=== PATIENT | female | born 1960 | race Caucasian/White ===

== ENCOUNTER → 2020-12-30 | Outpatient (CLI) | payer BC | LOC: CV 10:16 | PROVIDERS: ATTEND Family Medicine | DX: I10 Essential (primary) hypertension (principal); R07.89 Other chest pain ==

== ENCOUNTER 2021-02-26 12:20 | Observation (INO) | payer BC ==
[~2021-02-26] VITALS: Ht 162.6 cm; Wt 74.4 kg
[2021-02-26] VITALS (24 sets, daily range): BP systolic 86–139; BP diastolic 53–79
[2021-02-26] MEDS ORDERED: LIPITOR40 MG PO (14:04)
[2021-02-26] MEDS ORDERED: OXYCONTIN10 M1 PO (14:05)
[2021-02-26] MEDS ORDERED: LAMICTAL100 MG PO (14:05)
[2021-02-26] MEDS ORDERED: JARDIANCE25 MG PO (14:05)
[2021-02-26] MEDS ORDERED: OZEMPIC1 MG/0.71 SUBQ (14:06)
[2021-02-26 14:13] LABS: HEMOGLOBIN 16.3 gm/dL (12.0-15.0); MCH 31.4 pg (26.0-34.0); MCV 92.4 fL (80.0-100.0); RBC 5.19 mil/uL (4.20-5.00); RDW 13.5 % (10.5-14.5); WBC 9.7 thou/uL (4.0-11.0)
[2021-02-26 14:25] LABS: CALCIUM 10.5 mg/dL (8.5-10.1); CREATININE 0.9 mg/dL (0.6-1.0)
[2021-02-26 14:26] LABS: POTASSIUM 4.6 mmol/L (3.5-5.1)
--- NOTE | 2021-02-26 16:30 | NUR ---
REPORT RECEIVED FROM PREVIOUS RN. ADMITTED FOR STENT TO CIRC WITH R GROIN GUAZE/OPSITE DRESSING DRY/INTACT, PEDAL PULSES 2+. DENIES DISCOMFORT, SPOUSE PRESENT.
--- NOTE | 2021-02-26 17:21 | CATHLAB ---
[facility] [place] [address] INVASIVE PROCEDURE REPORT Name: BARBARA LACEY Room #: 219-P ADM Jeremias Robert#: [id number] Admission: 02/26/21 Attend Phys: Kirill Escamilla MD, Discharge: Date of : 62 Report #: [id number] THIS REPORT FOR: cc: Braden Jones MD, Bradley MD Mancuso, Gerald M. MD [facility] ~ APPROVED REPORT Study performed: 02/26/2021 14:19:30 Patient Details Patient Status: Out-Patient Room #: The patient is a 60 year-old female Event Personnel Kirill Escamilla Health Insurance Agent, Gena Iverson RN RN, Rosa Maria Martinez RTR, Negrito Dorado Ja'net RTR Monitor Procedures Performed Left Heart Cath w/or w/o Coronaries 2611593 [facility] Place w/wo Plasty Single CIRC 613966 Aortogram Abdominal Peripheral Angio 278595 Art Access - R femoral artery* 31852 Initial Mod Sed Same Phys/QHP Gr5y 228029 76292 Mod Sed Same Phys/QHP Ea 827829 Indication Chest pain Procedure Narrative The Right Groin^ was infiltrated with 1% Lidocaine subcutaneous anesthesia. A PINNACLE 6FR Sheath #[id number] sheath was inserted into the RFA^. Coronary angiography was performed using coronary diagnostic catheters. The right coronary system was accessed and visualized with a JR4 catheter. The left coronary system was accessed and visualized with a JL4 catheter. The left ventricle was accessed and visualized with a PIGTAIL catheter. An aortogram of the abdominal aorta was performed. Closure device was deployed with a Fr MYNX CONTROL 6F/7F L#[id number]. The patient tolerated the procedure well and there were no complications associated with the procedure. There was no hematoma. Intraoperative Conscious Sedation Sedation start time: 14:54 Case end Time: 16:14 [facility] [place] [address] INVASIVE PROCEDURE REPORT Name: BARBARA LACEY Room #: 219-P [facility] .R.#: [id number] Admission: 02/26/21 Attend Phys: Kirill Escamilla, Discharge: Date of : 62 Report #: [id number] Fentanyl 150 mcg Versed 1 mg Fluoro Time: 4.32 minutes Dose: DAP 4382.10 cGycm2 575 mGy Contrast Type and Amount: Visipaque 145 ml Hemodynamics The aortic pressure is 127/58 mmHg with a mean of 93 mmHg. The left ventricular pressure is 148/4 mmHg with a mean of mmHg. The left ventricular end diastolic pressure is 20 mmHg. PCI Technique Lesion Percutaneous coronary intervention was performed on the proximal circumflex artery segment. A LAUNCHER 6FR EBU 3.5 #[id number] Guide Catheter was used to engage the CIRC ostium. A Luge Wire .014 x 182CM #[id number] Interventional Guidewire was used to cross the lesion. BALLOON DILATION A Balloon catheter Sprinter OTW 2.5 x 15 #[id number] was inserted and inflated up to 8.00atm for 24seconds. Additional Inflation: 14.00atm for 22seconds. STENT DEPLOYMENT A stent RESOLUTE ESTRADA OTW 3.0 X 15 #[id number] was inserted and inflated up to 14.00atm for 22seconds. Additional Inflation: 16.00atm for 22seconds. Conclusion #1 Successful PTCA stent of a proximal mid large dominant circumflex artery with a long 95% lesion to 0% with placement of a 3.0 x 15 resolute Mccleary postdilated to 3.2 mm ZULEYMA grade III flow. #2 distal left main of 30 to 40% giving rise to LAD and circumflex will follow. #3 the ostial LAD off the left main is a 60% eccentric lesion with mild diffuse disease in this LAD which extends to the apex. #4 small nondominant right coronary artery mildly diseased #5 normal left ventricular size and systolic function EF 55% #6 abdominal aortogram revealed mild aortic ectasia but no definite aneurysm brisk flow was noted mild plaquing. Recommendations and plan: Continue aggressive risk factor modification. Dual antiplatelet therapy has been initiated. Patient [facility] [address] [place] [address] INVASIVE PROCEDURE REPORT Name: BARBARA LACEY Room #: 219-P [facility] IN Jakob#: [id number] Admission: 02/26/21 Attend Phys: Kirill Escamilla, Discharge: Date of : 62 Report #: [id number] to transfer to [facility] to follow post coronary stent protocol. She is hemodynamically stable pain-free. Resolution of EKG changes. <ELECTRONICALLY SIGNED> By: Kirill Escamilla MD, FACC 02/26/211720 20 20 Kirill Escamilla MD, FACC /INF
[2021-02-26 20:46] LABS: ABSOLUTE NEUTROPHILS 8.4 thou/uL (1.4-8.2); BASOPHILS 0.5 % (0.0-2.0); LYMPHOCYTES 10.8 % (24.0-44.0); MCH 30.9 pg (26.0-34.0); MCHC 33.6 g/dL (28.0-37.0); MCV 91.9 fL (80.0-100.0); MONOCYTES 1.3 % (1.0-8.0); PLATELET COUNT 164 thou/uL (150-400); POLYS 87.4 % (36.0-66.0); RBC 4.58 mil/uL (4.20-5.00); RDW 13.3 % (10.5-14.5); WBC 9.7 thou/uL (4.0-11.0)
[2021-02-26 20:52] LABS: CALCIUM 9.8 mg/dL (8.5-10.1); POTASSIUM 4.5 mmol/L (3.5-5.1)
[2021-02-26 21:04] LABS: HEMOGLOBIN 14.1 gm/dL (12.0-15.0)
--- NOTE | 2021-02-26 22:58 | NUR ---
AT APPROXIMATELY 1999 NURSE TOOK PATIENT OFF OF BEDREST AND ASSISTED PATIENT TO RESTROOM. THIS WAS DONE ONLY AFTER NURSE ASSESSED PATIENT AND SPOKE TO PROVIDER ABOUT CONCERN FOR POSSIBLE HEMATOMA. WHEN BRINGING PATIENT BACK TO BED FROM RESTROOM PATIENT STARTED COMPLAINING OF "NOT FEELING RIGHT" AND NAUSEA. NURSE MOMENTARILY LEFT ROOM TO GRAB RECEPTACLE FOR PATIENT TO VOMIT IN WHEN NURSE HEARD TELE ALARM AND SAW PATIENTS HEART RATE FALL INTO THE 40'S AND 30'S. RAPID RESPONSE INITIATED WITH NURSE ASSESSING CONSIDERABLE GROWTH OF SWELLING IN PATIENTS RIGHT GROIN SITE. ORDERS RECEIVED. NURSE TO TAKE SERIAL BLOOD PRESSURES THROUGHOUT SHIFT WITH PATIENT INSTRUCTED TO STAY IN BEDREST UNTIL REMOVED FROM PROVIDER.
[2021-02-27] VITALS (12 sets, daily range): BP systolic 97–120; BP diastolic 39–59
[2021-02-27 04:56] LABS: CALCIUM 9.3 mg/dL (8.5-10.1); CREATININE 0.8 mg/dL (0.6-1.0); POTASSIUM 4.4 mmol/L (3.5-5.1); TOTAL BILIRUBIN 0.4 mg/dL (0.2-1.0)
[2021-02-27 05:02] LABS: HEMATOCRIT 39.7 % (37.0-47.0); HEMOGLOBIN 13.3 gm/dL (12.0-15.0); MCH 31.3 pg (26.0-34.0); MCHC 33.4 g/dL (28.0-37.0); MCV 93.6 fL (80.0-100.0); RBC 4.24 mil/uL (4.20-5.00); RDW 13.5 % (10.5-14.5); WBC 10.1 thou/uL (4.0-11.0)
[2021-02-27] MEDS ORDERED: EFFIENT10 MG PO ×2 (07:38)
[2021-02-27] MEDS ORDERED: BAYER CHEWABLE81 MG PO ×2 (07:38)
--- NOTE | 2021-02-27 08:06 | EKG ---
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 : 1960 Requested By: Kirill Escamilla Order Number: [id number] MD: Magdiel Monzon Measurements Intervals [place] Rate: 97 P: 66 WY: 197 QRS: 235 QRSD: 80 T: 64 QT: 333 QTc: 423 Interpretive Statements Sinus rhythm Borderline prolonged [place] interval Low voltage, extremity leads Consider right ventricular hypertrophy No previous ECG available for comparison Electronically Signed On 02-27-2021 8:06:24 CDT by Magdiel Monzon [email or web address] <ELECTRONICALLY SIGNED> By: Magdiel Monzon MD, [facility] 02/27/21805 09 09 Magdiel Monzon MD, FACC /EPI
--- NOTE | 2021-02-27 08:10 | EKG ---
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
== END 2021-02-27 16:13 | disposition home or self-care (01) ==
LOC: CATH 12:20 → SJCVCIMAG 12:20 → 2N 17:03
PROVIDERS: Internal Medicine Cardiovascular Disease; ADMIT Internal Medicine Cardiovascular Disease; ATTEND Internal Medicine Cardiovascular Disease
DX: I25.110 Atherosclerotic heart disease of native coronary artery with unstable angina pectoris (principal); Z20.822 Contact with and (suspected) exposure to COVID-19; I10 Essential (primary) hypertension; E78.5 Hyperlipidemia, unspecified; E11.9 Type 2 diabetes mellitus without complications; Z88.8 Allergy status to other drugs, medicaments and biological substances; Z79.899 Other long term (current) drug therapy; Z79.82 Long term (current) use of aspirin

== ENCOUNTER → 2021-05-06 | Outpatient (CLI) | payer BC ==
[~2021-05-06] MED LIST: BAYER CHEWABLE81 MG PO; EFFIENT10 MG PO; JARDIANCE25 MG PO; LAMICTAL100 MG PO; LIPITOR40 MG PO; OXYCONTIN10 M1 PO; OZEMPIC1 MG/0.71 SUBQ
== END ==
LOC: SJCVCIMAG 07:23
PROVIDERS: ATTEND Internal Medicine Cardiovascular Disease
DX: I25.10 Atherosclerotic heart disease of native coronary artery without angina pectoris (principal); Z95.5 Presence of coronary angioplasty implant and graft; R07.89 Other chest pain